=== PATIENT | female | born 1990 | race Caucasian/White ===

== ENCOUNTER 2016-12-27 17:20 | Emergency (ER) | payer MEDICAID, MEDICARE ==
[~2016-12-27] VITALS: Ht 152.4 cm; Wt 55.0 kg
[~2016-12-27 17:20] MED LIST: PREN-88 PO
[2016-12-27 17:26] VITALS: BP 146/93
== END 2016-12-27 19:00 | disposition left against medical advice (07) ==
LOC: ER 17:20
DX: R10.9 Unspecified abdominal pain (principal); Z53.21 Procedure and treatment not carried out due to patient leaving prior to being seen by health care provider
CPT/HCPCS: J7030; Z7610

== ENCOUNTER 2016-12-28 00:39 | Emergency (ER) | payer MEDICAID, MEDICARE ==
[~2016-12-28] VITALS: Ht 149.9 cm; Wt 56.0 kg
[2016-12-28] MEDS ORDERED: MORPHINE SULFATE 4 MG/ML CPJ (NOT FOR IM USE) IV STA (02:37)
[2016-12-28] MEDS ORDERED: SODIUM CHLORIDE 0.9% 1,000 ML IV ONE (02:37)
[2016-12-28] MEDS ORDERED: ONDANSETRON HCL 4MG/2ML VIAL IV STA (02:37)
[2016-12-28 02:50] VITALS: BP 115/74
[2016-12-28 02:51] LABS: HEMATOCRIT. 37.9 % (36.0-48.0); HEMOGLOBIN. 12.4 g/dL (12.0-16.0); MEAN CORPUSCULAR HEMOGLOBIN 27.4 pg (28.0-32.0); MEAN CORPUSCULAR HGB CONC 32.7 g/dL (31.0-37.0); MEAN CORPUSCULAR VOLUME 83.8 fL (81.0-99.0); MEAN PLATELET VOLUME 8.9 fl (7.4-10.4); PLATELET 253 x1000/uL (130-400); RED BLOOD CELL COUNT 4.52 mill/uL (4.2-5.4); RED CELL DISTRIBUTION WIDTH 15.9 % (11.6-14.6); WHITE BLOOD COUNT 19.6 x1000/uL (4.5-11.0)
[2016-12-28 02:56] LABS: PROTHROMBIN TIME 10.7 sec
[2016-12-28 02:57] LABS: DIFFERENTIAL COMMENT 1
[2016-12-28 03:03] LABS: ALBUMIN 4.2 g/dL (3.4-5.0); CALCIUM 9.4 mg/dL (8.5-10.1); CARBON DIOXIDE 28 mEq/L (21-32); CHLORIDE 101 mEq/L (98-107); INDEX HEMOLYSI 1 (1-3); INDEX ICTERIC 1 (1-4); INDEX LIPEMIC 1 (1-3); UREA NITROGEN BLOOD 17 mg/dL (7-21); eGFR > 60 mL/min (>60)
[2016-12-28 03:19] LABS: ALANINE AMINOTRANSFERASE 13 IU/L (13-61); ANION GAP 12
[2016-12-28 03:30] LABS: CLARITY URINE TURBID (CLEAR); COLOR URINE DARK YELLOW (YELLOW); GLUCOSE URINE NEGATIVE (NEGATIVE); KETONES URINE 2+ (NEGATIVE); LEUKOCYTE ESTERASE URINE 3+ (NEGATIVE); NITRITE URINE POSITIVE (NEGATIVE); OCCULT BLOOD URINE 3+ (NEGATIVE); PH URINE 7.5 (4.5-8.0); PROTEIN URINE 2+ (NEGATIVE)
[2016-12-28] MEDS ORDERED: CEFTRIAXONE 1 G PREMIX 50 ML IV ONE (03:45)
[2016-12-28 04:14] LABS: BACTERIA URINE 3+; SQUAMOUS EPITHELIAL CELL URINE FEW /lpf (RARE/1+); TRIPLE PHOSPHATE CRYSTAL URINE 1+ /lpf; WBC URINE 25-50 /hpf (0-2)
[2016-12-28 04:21] LABS: PLATELET ESTIMATE NORMAL
== END 2016-12-28 05:13 | disposition home or self-care (01) ==
LOC: ER 00:39
DX: N12 Tubulo-interstitial nephritis, not specified as acute or chronic (principal)
CPT/HCPCS: 36415; 80053; 81001; 85025; 85610; 87077; 87086; 87186; 96361; 96374; 96375; 99284; J0696; J2270; J2405; J7030

== ENCOUNTER 2023-07-26 23:48 | Emergency (ER) | payer MEDICARE ==
[~2023-07-26] VITALS: Ht 149.9 cm; Wt 54.7 kg
[2023-07-27 00:14] VITALS: O2SAT 100
[2023-07-27] MEDS ORDERED: KETOROLAC 60MG/2ML VIAL IM STA (00:25)
[2023-07-27] MEDS ORDERED: METOCLOPRAMIDE HCL 10MG/2ML VIAL IM ONE (00:30)
[2023-07-27 01:01] LABS: BASOPHILS % 0.3 % (0.0-2.0); HEMATOCRIT. 42.6 % (36.0-48.0); HEMOGLOBIN. 14.3 g/dL (12.0-16.0); LYMPHOCYTES % 8.9 % (20.0-50.0); MEAN CORPUSCULAR HEMOGLOBIN 30.2 pg (28.0-32.0); MEAN CORPUSCULAR HGB CONC 33.6 g/dL (31.0-37.0); MEAN CORPUSCULAR VOLUME 89.8 fL (81.0-99.0); MEAN PLATELET VOLUME 8.7 fl (7.4-10.4); MONOCYTES % 2.1 % (2.0-8.0); NEUTROPHILS % 88.7 % (40.0-76.0); PLATELET 322 x1000/uL (130-400); RED BLOOD CELL COUNT 4.74 mill/uL (4.2-5.4); RED CELL DISTRIBUTION WIDTH 14.6 % (11.6-14.6)
[2023-07-27 01:12] LABS: CLARITY URINE CLOUDY (CLEAR); COLOR URINE YELLOW (YELLOW); GLUCOSE URINE NEGATIVE (NEGATIVE); KETONES URINE 2+ (NEGATIVE); LEUKOCYTE ESTERASE URINE NEGATIVE (NEGATIVE); NITRITE URINE NEGATIVE (NEGATIVE); OCCULT BLOOD URINE 3+ (NEGATIVE); PROTEIN URINE TRACE (NEGATIVE); SPECIFIC GRAVITY URINE 1.028 (1.005-1.030); UROBILINOGEN URINE 0.2 E.U./dL (0.2-1.0)
[2023-07-27 01:13] LABS: ALANINE AMINOTRANSFERASE 9 IU/L (10-49); ALBUMIN 4.8 g/dL (3.2-4.8); ASPARTATE AMINOTRANSFERASE 20 IU/L (<34); BILIRUBIN TOTAL 0.9 mg/dL (0.1-1.0); CALCIUM 10.3 mg/dL (8.7-10.4); CARBON DIOXIDE 27 mEq/L (21-32); CHLORIDE 101 mEq/L (98-107); CREATININE 0.6 mg/dL (0.6-1.0); GLUCOSE 136 mg/dL (70-105); POTASSIUM 4.2 mEq/L (3.5-5.1); PROTEIN TOTAL 8.1 g/dL (6.0-8.3); SODIUM 136 mEq/L (136-145); UREA NITROGEN BLOOD 14 mg/dL (9-23)
[2023-07-27 02:20] LABS: BACTERIA URINE 1+; RBC URINE 0-2 /hpf (0-2); SQUAMOUS EPITHELIAL CELL URINE 2+ /lpf (RARE/1+)
[2023-07-27] MEDS ORDERED: NAPR-681 PO (03:15)
[2023-07-27] MEDS ORDERED: FAMO20TA8 MT (03:15)
[2023-07-27] MEDS ORDERED: ONDA4TAB50 PO (03:15)
[2023-07-27] MEDS ORDERED: KETOROLAC 60MG/2ML VIAL IM NR (04:00)
[2023-07-27] MEDS ORDERED: METOCLOPRAMIDE HCL 10MG/2ML VIAL IM NR (04:00)
[2023-07-27 04:14] VITALS: BP 138/85; PULSE 97; RESP 20; TEMP 98.7
== END 2023-07-27 04:16 | disposition home or self-care (01) ==
LOC: ER 23:48
DX: R51.9 Headache, unspecified (principal); K29.00 Acute gastritis without bleeding; Z87.440 Personal history of urinary (tract) infections; Z98.890 Other specified postprocedural states
CPT/HCPCS: 81003; 81025; 36415; 99284; 80053; 83690; 85025; 93005; J1885; J2765; Z7610 ×2